=== PATIENT | male | born 1995 | race Caucasian/White ===

== ENCOUNTER 2021-03-08 11:43 | Emergency (ER) | payer SELFPAY ==
[~2021-03-08] VITALS: Ht 170.2 cm; Wt 81.8 kg
[2021-03-08] MEDS ORDERED: PERTUSS(ACELL),DIPH,TET VAC/PF 0.5 ML SYRINGE IM. ONE (12:45)
[2021-03-08] MEDS ORDERED: LIDOCAINE 1%/EPI 1:200,000/PF 30 ML VIAL SQ ONE (12:45)
[2021-03-08 12:59] VITALS: BP 138/87
== END 2021-03-08 14:33 | disposition home or self-care (01) ==
LOC: EMS 11:47
DX: S81.811A Laceration without foreign body, right lower leg, initial encounter (principal); W26.8XXA Contact with other sharp object(s), not elsewhere classified, initial encounter; Y93.89 Activity, other specified; Y92.89 Other specified places as the place of occurrence of the external cause; Y99.0 Civilian activity done for income or pay
CPT/HCPCS: 12002; 73552; 90471; 90715; 99283; J3490